=== PATIENT | female | born 1945 | race Caucasian/White ===

== ENCOUNTER 2022-08-29 16:36 | Emergency (ER) | payer MEDICARE, BC ==
[2022-08-29] MEDS ORDERED: Iopamidol 370 76% 100 ML VIAL FS ONE (16:37)
[2022-08-29] MEDS ORDERED: Morphine 4 MG/ML VIAL ONE (18:04)
[2022-08-29 18:21] LABS: ALT (SGPT) 12 U/L (8-55); AST (SGOT) 16 U/L (5-34); Albumin 4.2 g/dL (3.4-4.8); Alkaline Phosphatase 68 U/L (40-110); Anion Gap 14 mmol/L (10-20); BUN (Urea Nitrogen) 15 mg/dL (9.8-20.1); Bilirubin, Total 0.6 mg/dL (0.2-1.2); Calc. Creatinine Clearance 0 mL/min (70-130); Calcium 9.3 mg/dL (7.8-10.44); Carbon Dioxide 26 mmol/L (23-31); Chloride 106 mmol/L (98-107); Estimated GFR 72; Globulin 3.1 g/dL (2.4-3.5); Glucose 100 mg/dL (83-110); Lipase 11 U/L (8-78); Potassium 3.9 mmol/L (3.5-5.1); Protein, Total 7.3 g/dL (5.8-8.1); Sodium 142 mmol/L (136-145)
[2022-08-29 18:33] LABS: Eosinophils 2 % (0-10); Hemoglobin 15.8 g/dL (12.0-16.0); Lymphocytes 19 % (21-51); MDiff Complete? YES; Mean Corpuscular HGB CONC 31.9 g/dL (32.0-36.0); Mean Corpuscular Hemoglobin 29.8 pg (27.0-31.0); Mean Corpuscular Volume 93.3 fL (78.0-98.0); Mean Platelet Volume 8.5 fL (7.4-10.4); Monocytes 3 % (0-10); Neutrophil 76 % (42-75); Platelet Count 258 thou/uL (130-400); Red Blood Cell (RBC) Count 5.32 mill/uL (4.20-5.40); White Blood Cell (WBC) Count 11.3 thou/uL (4.8-10.8)
[2022-08-29 18:40] LABS: Bilirubin Negative (Negative); Blood, Urine Small (Negative); Clarity Clear (Clear); Glucose, Urine (Dipstick) Negative (Negative); Ketone, Urine 15 mg/dL (Negative); Leukocyte Negative (Negative); Nitrite Negative (Negative); Protein, Urine (Dipstick) Negative (Neg-Trace); Urobilinogen 0.2 mg/dL (Less than 2); pH, Urine 8.5 (5.0-9.0)
[2022-08-29 18:44] LABS: Bacteria/HPF None Seen HPF (None Seen); Squamous Epithelial 0-3 HPF (0-3); WBC/HPF None Seen HPF (0-3)
[2022-08-29] MEDS ORDERED: Amoxicillin/Potassium Clav 875 MG TAB ONE (19:57)
== END 2022-08-29 20:02 | disposition home or self-care (01) ==
LOC: BURERS 16:36
DX: K57.32 Diverticulitis of large intestine without perforation or abscess without bleeding (principal)
CPT/HCPCS: 36415; 74177; 80053; 81003; 81015; 83605; 83690; 85025; 96360; J2270; Q9967

== ENCOUNTER 2023-05-23 17:20 | Inpatient (IN) | payer MEDICARE, BC ==
[2023-05-23 18:46] VITALS: BMI 24.9
[2023-05-23] MEDS ORDERED: Bisacodyl 10 MG SUPP PR PRN (19:02)
[2023-05-23] MEDS ORDERED: Acetaminophen 325 MG TAB PO PRN (19:02)
[2023-05-23] MEDS ORDERED: Bisacodyl 5 MG TAB PO PRN (19:02)
[2023-05-23] MEDS ORDERED: Senokot S 8.6-50 MG TAB PO PRN (19:15)
[2023-05-23] MEDS ORDERED: Acetaminophen 650 MG Suppository PR PRN (19:16)
[2023-05-23] MEDS ORDERED: HYDROcodone/Acetaminophen 5/325 mg Tablet PO PRN ×2 (19:19→19:20)
[2023-05-23] MEDS ORDERED: Ondansetron PF 4 MG/2 ML Vial IVP PRN (19:21)
[2023-05-23] MEDS ORDERED: Ondansetron ODT 4 MG TAB PO PRN (19:22)
[2023-05-23] MEDS ORDERED: Calcium Carbonate 500 MG ChewTAB PO PRN (19:23)
[2023-05-23] MEDS ORDERED: Polyethylene Glycol 3350 17 GM Packet PO PRN (20:29)
[2023-05-23] MEDS: ALPRAZolam 0.5 MG TAB PO PRN (20:56)
[2023-05-23] MEDS: QUEtiapine 25 MG TAB PO SCH (20:56)
[2023-05-23] MEDS: Amiodarone 200 MG TAB PO SCH (20:57)
[2023-05-23] MEDS ORDERED: Zolpidem Tartrate 5 MG TAB PO PRN (23:00)
[2023-05-24] MEDS: ALPRAZolam 0.5 MG TAB PO PRN ×2 (04:02→21:05)
[2023-05-24] MEDS: Lidocaine 4% Patch TD SCH (09:08)
[2023-05-24] MEDS: Metoprolol Tartrate 25 MG TAB PO SCH ×2 (09:09→17:20)
[2023-05-24] MEDS: Amiodarone 200 MG TAB PO SCH ×2 (09:09→21:05)
[2023-05-24] MEDS: Lisinopril 5 MG TAB PO SCH ×2 (09:09→17:20)
[2023-05-24] MEDS ORDERED: Transdermal Patch Removal TOP SCH (21:00)
[2023-05-24] MEDS: QUEtiapine 25 MG TAB PO SCH (21:05)
[2023-05-25] MEDS ORDERED: Lidocaine 4% Patch TD SCH (09:30)
[2023-05-25] MEDS ORDERED: Amiodarone 200 MG TAB PO SCH (09:30)
[2023-05-25] MEDS ORDERED: Lisinopril 5 MG TAB PO SCH (09:30)
[2023-05-25] MEDS ORDERED: Acetaminophen 650 MG Suppository PR PRN (09:32)
[2023-05-25] MEDS ORDERED: Acetaminophen 325 MG TAB PO PRN (09:32)
[2023-05-25] MEDS ORDERED: Bisacodyl 5 MG TAB PO PRN (09:33)
[2023-05-25] MEDS ORDERED: Bisacodyl 10 MG SUPP PR PRN (09:33)
[2023-05-25] MEDS ORDERED: Calcium Carbonate 500 MG ChewTAB PO PRN (09:34)
[2023-05-25] MEDS ORDERED: HYDROcodone/Acetaminophen 5/325 mg Tablet PO PRN ×2 (09:34)
[2023-05-25] MEDS ORDERED: Ondansetron ODT 4 MG TAB PO PRN (09:35)
[2023-05-25] MEDS ORDERED: Ondansetron PF 4 MG/2 ML Vial IVP PRN (09:35)
[2023-05-25] MEDS ORDERED: Senokot S 8.6-50 MG TAB PO PRN (09:36)
[2023-05-25] MEDS ORDERED: Zolpidem Tartrate 5 MG TAB PO PRN (09:36)
[2023-05-25] MEDS ORDERED: Metoprolol Tartrate 25 MG TAB PO SCH (09:45)
[2023-05-25] MEDS: Lisinopril 5 MG TAB PO SCH ×2 (10:51→18:07)
[2023-05-25] MEDS: Metoprolol Tartrate 25 MG TAB PO SCH ×2 (10:52→18:07)
[2023-05-25] MEDS: Lidocaine 4% Patch TD SCH (10:52)
[2023-05-25] MEDS: Amiodarone 200 MG TAB PO SCH ×2 (10:52→20:45)
[2023-05-25] MEDS: Polyethylene Glycol 3350 17 GM Packet PO PRN (12:52)
[2023-05-25] MEDS: QUEtiapine 25 MG TAB PO SCH (20:46)
[2023-05-25] MEDS: ALPRAZolam 0.5 MG TAB PO PRN (20:47)
[2023-05-25] MEDS: Transdermal Patch Removal TOP SCH (20:51)
[2023-05-26] MEDS: Lisinopril 5 MG TAB PO SCH ×2 (08:58→17:59)
[2023-05-26] MEDS: Metoprolol Tartrate 25 MG TAB PO SCH ×2 (08:58→17:59)
[2023-05-26] MEDS: Amiodarone 200 MG TAB PO SCH ×2 (08:58→20:53)
[2023-05-26] MEDS: Polyethylene Glycol 3350 17 GM Packet PO PRN (08:59)
[2023-05-26] MEDS: Lidocaine 4% Patch TD SCH (08:59)
[2023-05-26 11:29] LABS: #Basophils 0.1 thou/uL (0.0-0.2); #Eosinphils 0.1 thou/uL (0.0-0.7); #Lymphocytes 0.6 thou/uL (1.20-3.40); #Monocytes 0.6 thou/uL (0.11-0.59); #Neutrophils 8.7 thou/uL (1.40-6.50); %Basophils 0.8 % (0.0-1.0); %Eosinophils 0.6 % (0.0-10.0); %Monocytes 6.2 % (0.0-10.0); %Neutrophils 86.4 % (42.0-75.0); Hemoglobin 10.2 g/dL (12.0-16.0); Mean Corpuscular HGB CONC 32.7 g/dL (32.0-36.0); Mean Corpuscular Volume 91.7 fl (78.0-98.0); Mean Platelet Volume 5.7 fL (7.4-10.4); Platelet Count 497 10x3/uL (130-400); RBC Distribution Width 12.4 % (11.5-14.5); Red Blood Cell (RBC) Count 3.39 mill/uL (4.20-5.40)
[2023-05-26] MEDS: Transdermal Patch Removal TOP SCH (20:54)
[2023-05-26] MEDS: QUEtiapine 25 MG TAB PO SCH (20:54)
[2023-05-26] MEDS: ALPRAZolam 0.5 MG TAB PO PRN (20:55)
[2023-05-27] MEDS: Amiodarone 200 MG TAB PO SCH ×2 (09:07→20:35)
[2023-05-27] MEDS: Metoprolol Tartrate 25 MG TAB PO SCH ×2 (09:07→17:56)
[2023-05-27] MEDS: Lisinopril 5 MG TAB PO SCH ×2 (09:07→17:56)
[2023-05-27] MEDS: Polyethylene Glycol 3350 17 GM Packet PO PRN (09:09)
[2023-05-27] MEDS: Lidocaine 4% Patch TD SCH (09:09)
[2023-05-27] MEDS: ALPRAZolam 0.5 MG TAB PO PRN (20:34)
[2023-05-27] MEDS: Transdermal Patch Removal TOP SCH (20:35)
[2023-05-27] MEDS: QUEtiapine 25 MG TAB PO SCH (20:35)
[2023-05-28] MEDS: Amiodarone 200 MG TAB PO SCH ×2 (09:02→20:20)
[2023-05-28] MEDS: Lidocaine 4% Patch TD SCH (09:02)
[2023-05-28] MEDS: Metoprolol Tartrate 25 MG TAB PO SCH ×2 (09:02→18:23)
[2023-05-28] MEDS: Polyethylene Glycol 3350 17 GM Packet PO PRN (09:02)
[2023-05-28] MEDS: Lisinopril 5 MG TAB PO SCH ×2 (09:03→18:23)
[2023-05-28] MEDS: QUEtiapine 25 MG TAB PO SCH (20:19)
[2023-05-28] MEDS: ALPRAZolam 0.5 MG TAB PO PRN (20:20)
[2023-05-28] MEDS: Transdermal Patch Removal TOP SCH (21:22)
[2023-05-29] MEDS: Lisinopril 5 MG TAB PO SCH ×2 (08:54→18:17)
[2023-05-29] MEDS: Amiodarone 200 MG TAB PO SCH ×2 (08:55→20:56)
[2023-05-29] MEDS: Polyethylene Glycol 3350 17 GM Packet PO PRN (08:55)
[2023-05-29] MEDS: Metoprolol Tartrate 25 MG TAB PO SCH ×2 (08:55→18:16)
[2023-05-29] MEDS: Lidocaine 4% Patch TD SCH (15:04)
[2023-05-29] MEDS: Transdermal Patch Removal TOP SCH (20:56)
[2023-05-29] MEDS: ALPRAZolam 0.5 MG TAB PO PRN (20:56)
[2023-05-29] MEDS: QUEtiapine 25 MG TAB PO SCH (20:56)
[2023-05-30 06:25] VITALS: TEMP 98.1
[2023-05-30] MEDS: Polyethylene Glycol 3350 17 GM Packet PO PRN (07:59)
[2023-05-30] MEDS: Amiodarone 200 MG TAB PO SCH (07:59)
[2023-05-30] MEDS: Lisinopril 5 MG TAB PO SCH (07:59)
[2023-05-30] MEDS: Metoprolol Tartrate 25 MG TAB PO SCH (07:59)
[2023-05-30] MEDS: Lidocaine 4% Patch TD SCH (07:59)
[2023-05-30 08:00] VITALS: BP 143/64
== END 2023-05-30 15:50 | disposition home health service (06) | DRG 948 ==
LOC: BURMED 17:20 → UNDOADMIN 17:20 → BURMED 18:28 → UNDODISIN 05-24 23:20 → BURMED 05-27 19:53
PROVIDERS: ADMIT Family Medicine; ATTEND Family Medicine
DX: R53.1 Weakness (principal); I10 Essential (primary) hypertension; Z90.49 Acquired absence of other specified parts of digestive tract; I48.0 Paroxysmal atrial fibrillation
CPT/HCPCS: 36415; 85025